=== PATIENT | male | born 1990 | race African-American/Black ===

== ENCOUNTER 2018-03-05 22:38 | Emergency (ER) | payer OTHER ==
[2018-03-05] MEDS: LIDOCAINE 2% (MDV) 20 ML INJ INJ (23:13)
[2018-03-05] MEDS: CLINDAMYCIN 300 MG INJ IM (23:16)
== END 2018-03-05 23:58 | disposition home or self-care (01) ==
LOC: FTE 23:58
DX: L03.114 Cellulitis of left upper limb (principal)
CPT/HCPCS: 10060; 96372; 99284-25